=== PATIENT | male | born 1955 | race Caucasian/White ===

== ENCOUNTER 2020-03-02 10:51 | Inpatient (IN) | payer BC ==
[~2020-03-02] VITALS: Ht 182.9 cm; Wt 127.0 kg
[~2020-03-02 10:51] MED LIST: ASPIRIN EC81 M1; CENTRUM TABLET1 EACH; FISHOIL; LIPITOR80 MG PO; LOPRESSOR; LOSARTAN-HCTZ1 EACH; NORCO 5-325 TA1 EACH PO; NORVASC 2.5 MG2.5 M1 PO; PIROXICAM20 MG PO
[2020-03-02 11:06] VITALS: BP 136/84
[2020-03-02] MEDS ORDERED: NIASPAN ER 101000 M1 PO (11:17)
[2020-03-02] MEDS ORDERED: NORTRIPTYLINE H50 M3 PO (11:17)
[2020-03-02] MEDS ORDERED: NEURONTIN 300M300 M2 PO (11:17)
[2020-03-02] MEDS ORDERED: VITAMIN C100 MG PO (11:18)
[2020-03-02] MEDS ORDERED: CENTRUM ADULTS1 EACH PO (11:18)
[2020-03-02] MEDS ORDERED: HUMIRA10 MG/0.1 SUBQ (11:18)
[2020-03-02] MEDS ORDERED: TOPROL XL25 MG PO (11:19)
[2020-03-02 11:23] LABS: ABSOLUTE EOSINOPHILS 0.1 thou/uL (0.0-0.7); ABSOLUTE MONOCYTES 0.5 thou/uL (0.0-1.2); BASOPHILS 0.7 %; EOSINOPHILS 1.5 %; HEMATOCRIT 45.7 % (42.0-52.0); HEMOGLOBIN 15.8 gm/dL (14.0-18.0); LYMPHOCYTES 17.9 %; MCH 30.7 pg (26.0-34.0); MCHC 34.5 g/dL (28.0-37.0); MONOCYTES 9.2 %; MPV 9.4 fl. (7.2-11.1); NUCLEATED RBCS 0 /100WBC; PLATELET COUNT* 164 thou/uL (150-400); POLYS 70.7 %; RBC 5.13 mil/uL (4.50-6.00); RDW-CV 12.8 % (10.5-14.5); WBC 5.6 thou/uL (4.0-11.0)
[2020-03-02 11:39] LABS: CREATININE 1.4 mg/dL (0.6-1.3)
[2020-03-02 11:42] LABS: APTT 25.9 Seconds (25.0-31.3); PROTIME 10.8 Seconds (9.20-11.50)
[2020-03-02 11:50] LABS: ALBUMIN 3.2 g/dL (3.4-5.0); TOTAL BILIRUBIN 0.8 mg/dL (<0.1-1.0); TOTAL PROTEIN 7.4 g/dL (6.4-8.2)
[2020-03-02 13:40] VITALS: BP 134/70
[2020-03-02 14:00] VITALS: BP 132/68
--- NOTE | 2020-03-02 17:08 | EKG ---
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: [facility] – [place] : 1955 Requested By: Boni Walker Order Number: [id number] MD: Ag Nur Measurements Intervals [place] Rate: 86 P: 55 WI: 164 QRS: 83 QRSD: 127 T: 102 QT: 421 QTc: 504 Interpretive Statements Sinus rhythm Nonspecific intraventricular conduction delay Nonspecific T abnrm, anterolateral leads No previous ECG available for comparison Electronically Signed On 03-02-2020 17:07:51 BREAK AND LOAD OPERATOR by Ag Nur [email or web address] <ELECTRONICALLY SIGNED> By: Ag Nur MD, FACC 03/02/20 1707 1106 1106 Ag Nur MD, FAC /EPI
[2020-03-02 20:00] VITALS: BP 151/83
[2020-03-02] MEDS ORDERED: NEURONTIN300 MG PO (20:36)
[2020-03-03] VITALS (7 sets, daily range): BP systolic 117–143; BP diastolic 69–82
--- NOTE | 2020-03-03 13:41 | 2DMMODE ---
[place] [address] 2 D/M-MODE ECHOCARDIOGRAM Name: CLARITA GARCIA Room: [address] IN [facility]#: [id number] Admission: 03/02/20 Attend Phys: Morgan Pace Discharge: Date of : 57 Date of Service: 03/03/20 1340 Report #: [id number] THIS REPORT FOR: cc: Christopher Coon MD, Khanh MD Blick,Ag Velez MD [facility] ~ ADDENDUM APPROVED REPORT Study performed: 03/03/2020 10:33:22 EXAM: Comprehensive 2D, Doppler, and color-flow Echocardiogram Patient Location: In-Patient Room #: [facility] Status: routine BSA: 2.46 HR: 84 bpm BP: 143/70 mmHg Rhythm: NSR Other Information Study Quality: Good Indications CAD 2D Dimensions IVSd: 12.06 (7-11mm) LVOT Diam: 20.23 (18-24mm) LVDd: 48.16 mm PWd: 10.92 (7-11mm) Ascending Ao: 33.17 (22-36mm) LVDs: 31.72 (25-40mm) Aortic Root: 40.03 mm Volumes Left Atrial Volume (Systole) LA ESV Index: 18.90 mL/m2 Aortic Valve AoV Peak Jamaal.: 1.05 m/s AO Peak Gr.: 4.42 mmHg LVOT Max P.83 mmHg AO Mean Gr.: 2.73 mmHg LVOT Mean P.09 mmHg LVOT Max V: 1.10 m/s AO V2 VTI: 14.91 cm LVOT Mean V: 0.66 m/s CARLOS (VTI): 3.43 cm2 LVOT V1 VTI: 15.91 [place] [address] 2 D/M-MODE ECHOCARDIOGRAM Name: CLARITA GARCIA Room: [address] IN [facility].#: [id number] Admission: 03/02/20 Attend Phys: Morgan Pace Discharge: Date of : 57 Date of Service: 03/03/20 1340 Report #: [id number] Mitral Valve E/A Ratio: 0.94 MV Decel. Time: 194.76 ms MV E Max Jamaal.: 0.46 m/s MV PHT: 56.48 ms MVA (PHT): 3.90 cm2 TDI E/Lateral E': 4.60 E/Medial E': 5.75 Medial E' Jamaal.: 0.08 m/s Lateral E' Jamaal.: 0.10 m/s Pulmonary Valve PV Peak Jamaal.: 0.92 m/s PV Peak Gr.: 3.36 mmHg Left Ventricle The left ventricle is normal size. There is normal LV segmental wall motion. There is normal left ventricular wall thickness. Left ventricular systolic function is normal. The left ventricular ejection fraction is within the normal range. LVEF is 50-55%. The left ventricular diastolic function is normal. Right Ventricle The right ventricle is normal size. The right ventricular systolic function is normal. Atria The left atrium size is normal. The right atrium size is normal. Aortic Valve The aortic valve is normal in structure. No aortic regurgitation is present. There is no aortic valvular stenosis. Mitral Valve The mitral valve is normal in structure. Trace mitral regurgitation. No evidence of mitral valve stenosis. Tricuspid Valve The tricuspid valve is normal in structure. Unable to assess PA pressure. Trace tricuspid regurgitation. Pulmonic Valve The pulmonary valve is normal in structure. There is no pulmonic [place] [address] 2 D/M-MODE ECHOCARDIOGRAM Name: GARCIACLARITA Room: [address] IN [facility]#: [id number] Admission: 03/02/20 Attend Phys: Morgan Pace Discharge: Date of : 57 Date of Service: 03/03/20 1340 Report #: [id number] Great Vessels Aortic root is mildly dilated. IVC is not well visualized. Pericardium There is no pericardial effusion. <Conclusion> Left ventricular systolic function is normal. The left ventricular ejection fraction is within the normal range. <ELECTRONICALLY SIGNED> By: Ag Nur MD, FACC 03/03/20 1340 1340 134 Ag Nur MD, FACC /INF
[2020-03-03 14:49] LABS: URINE BILIRUBIN NEGATIVE (Negative); URINE BLOOD NEGATIVE (Negative); URINE CLARITY CLEAR; URINE COLOR YELLOW; URINE GLUCOSE-RANDOM NEGATIVE (Negative); URINE KETONES 1+ (Negative); URINE LEUKOCYTES NEGATIVE (Negative); URINE NITRITE NEGATIVE (Negative); URINE PROTEIN TRACE (Negative); URINE SPECIFIC GRAVITY 1.025 (1.005-1.030); URINE UROBILINOGEN 0.2 E.U./dl (0.2-1.0)
[2020-03-03 15:55] LABS: ABSOLUTE EOSINOPHILS 0.2 thou/uL (0.0-0.7); ABSOLUTE LYMPHOCYTES 1.4 thou/uL (0.8-5.3); ABSOLUTE MONOCYTES 0.7 thou/uL (0.0-1.2); ABSOLUTE NEUTROPHILS 4.2 thou/uL (1.6-8.1); BASOPHILS 0.5 %; EOSINOPHILS 2.8 %; HEMATOCRIT 41.6 % (42.0-52.0); HEMOGLOBIN 14.1 gm/dL (14.0-18.0); LYMPHOCYTES 21.2 %; MCH 30.3 pg (26.0-34.0); MCHC 33.9 g/dL (28.0-37.0); MCV 89.4 fL (80.0-100.0); MONOCYTES 10.5 %; MPV 9.2 fl. (7.2-11.1); NUCLEATED RBCS 0 /100WBC; PLATELET COUNT* 184 thou/uL (150-400); RBC 4.65 mil/uL (4.50-6.00); WBC 6.5 thou/uL (4.0-11.0)
[2020-03-03 16:04] LABS: ALBUMIN 2.8 g/dL (3.4-5.0); CALCIUM 8.2 mg/dL (8.5-10.1); CREATININE 1.4 mg/dL (0.6-1.3); MAGNESIUM 2.1 mg/dL (1.8-2.4); POTASSIUM 3.1 mmol/L (3.5-5.1); TOTAL BILIRUBIN 0.8 mg/dL (<0.1-1.0); TOTAL PROTEIN 6.9 g/dL (6.4-8.2)
[2020-03-03 16:34] LABS: INFLUENZA A ANTIGEN Negative (Negative); INFLUENZA B ANTIGEN Negative (Negative)
[2020-03-03 17:34] LABS: BE 4.9 mmol/L (-2 to +3); PCO2 40.5 mmHg (35.0-45.0); PO2 60.1 mmHg (75.0-100.0); pH 7.471 (7.340-7.450)
[2020-03-04 04:00] VITALS: BP 120/78
[2020-03-04 04:21] LABS: ABSOLUTE LYMPHOCYTES 0.9 thou/uL (0.8-5.3); ABSOLUTE MONOCYTES 0.2 thou/uL (0.0-1.2); ABSOLUTE NEUTROPHILS 4.4 thou/uL (1.6-8.1); BASOPHILS 0.2 %; EOSINOPHILS 0.1 %; HEMATOCRIT 42.5 % (42.0-52.0); HEMOGLOBIN 14.3 gm/dL (14.0-18.0); LYMPHOCYTES 16.8 %; MCHC 33.7 g/dL (28.0-37.0); MCV 89.1 fL (80.0-100.0); MONOCYTES 3.9 %; MPV 9.6 fl. (7.2-11.1); NUCLEATED RBCS 0 /100WBC; PLATELET COUNT* 204 thou/uL (150-400); RBC 4.77 mil/uL (4.50-6.00); WBC 5.6 thou/uL (4.0-11.0)
[2020-03-04 04:45] LABS: ALBUMIN 2.9 g/dL (3.4-5.0); CALCIUM 8.8 mg/dL (8.5-10.1); CREATININE 1.4 mg/dL (0.6-1.3); MAGNESIUM 2.4 mg/dL (1.8-2.4); PHOSPHORUS* 1.9 mg/dL (2.5-4.9); TOTAL BILIRUBIN 1.1 mg/dL (<0.1-1.0); TOTAL PROTEIN 7.4 g/dL (6.4-8.2)
[2020-03-04 04:58] LABS: POTASSIUM 4.2 mmol/L (3.5-5.1)
[2020-03-04 07:45] VITALS: BP 117/74
[2020-03-04 12:35] VITALS: BP 118/61
[2020-03-04 16:19] VITALS: BP 115/72
[2020-03-04 20:00] VITALS: BP 145/76
[2020-03-05 04:00] VITALS: BP 126/60
[2020-03-05 08:00] VITALS: BP 110/68
[2020-03-05 09:49] LABS: CREATININE 1.3 mg/dL (0.6-1.3)
[2020-03-05 13:40] VITALS: BP 137/74
[2020-03-05 18:01] VITALS: BP 145/79
[2020-03-05 20:00] VITALS: BP 143/75
[2020-03-06 00:20] VITALS: BP 137/76
[2020-03-06 04:44] VITALS: BP 137/78
[2020-03-06 09:00] VITALS: BP 108/55
[2020-03-06 09:46] LABS: HEMATOCRIT 40.7 % (42.0-52.0); HEMOGLOBIN 13.6 gm/dL (14.0-18.0); MCH 30.3 pg (26.0-34.0); MCHC 33.4 g/dL (28.0-37.0); MCV 90.6 fL (80.0-100.0); NUCLEATED RBCS 0 /100WBC; PLATELET COUNT* 268 thou/uL (150-400); RBC 4.49 mil/uL (4.50-6.00); RDW-CV 12.6 % (10.5-14.5); WBC 16.1 thou/uL (4.0-11.0)
[2020-03-06 10:05] LABS: ALBUMIN 3.1 g/dL (3.4-5.0); CALCIUM 8.5 mg/dL (8.5-10.1); CREATININE 1.4 mg/dL (0.6-1.3); POTASSIUM 3.8 mmol/L (3.5-5.1); TOTAL BILIRUBIN 0.6 mg/dL (<0.1-1.0); TOTAL PROTEIN 7.1 g/dL (6.4-8.2)
[2020-03-06 10:31] LABS: ABSOLUTE LYMPHOCYTES 1.1 thou/uL (0.8-5.3); ABSOLUTE MONOCYTES 0.8 thou/uL (0.0-1.2); ABSOLUTE NEUTROPHILS 14.2 thou/uL (1.6-8.1); PLATELET ESTIMATE ADEQUATE
[2020-03-06 13:55] VITALS: BP 114/63
[2020-03-06 16:00] VITALS: BP 136/63
[2020-03-07 00:34] VITALS: BP 146/55
[2020-03-07 00:36] VITALS: BP 141/74
[2020-03-07 02:06] LABS: MYCOPLASMA PNEUMONIA IgG 518 U/mL (0-99); MYCOPLASMA PNEUMONIA IgM <770 U/mL (0-769)
[2020-03-07 04:00] VITALS: BP 156/77
[2020-03-07 05:29] LABS: ABSOLUTE MONOCYTES 0.6 thou/uL (0.0-1.2); ABSOLUTE NEUTROPHILS 11.7 thou/uL (1.6-8.1); BASOPHILS 0.1 %; HEMATOCRIT 39.3 % (42.0-52.0); HEMOGLOBIN 13.2 gm/dL (14.0-18.0); LYMPHOCYTES 7.7 %; MCH 30.1 pg (26.0-34.0); MCHC 33.7 g/dL (28.0-37.0); MCV 89.4 fL (80.0-100.0); MONOCYTES 4.8 %; MPV 8.9 fl. (7.2-11.1); NUCLEATED RBCS 0 /100WBC; PLATELET COUNT* 258 thou/uL (150-400); POLYS 87.4 %; RDW-CV 12.5 % (10.5-14.5); WBC 13.4 thou/uL (4.0-11.0)
[2020-03-07 05:49] LABS: ALBUMIN 2.9 g/dL (3.4-5.0); CALCIUM 8.6 mg/dL (8.5-10.1); CREATININE 1.1 mg/dL (0.6-1.3); MAGNESIUM 2.2 mg/dL (1.8-2.4); POTASSIUM 4.5 mmol/L (3.5-5.1); TOTAL BILIRUBIN 0.7 mg/dL (<0.1-1.0); TOTAL PROTEIN 6.8 g/dL (6.4-8.2)
[2020-03-07 07:40] VITALS: BP 157/82
[2020-03-07] MEDS ORDERED: DEXAMETHASONE1 MG PO (08:50)
[2020-03-07] MEDS ORDERED: VIBRAMYCIN 100100 M2 PO (08:50)
[2020-03-07] MEDS ORDERED: PROTONIX40 M2 PO (08:50)
[2020-03-07] MEDS ORDERED: VENTOLIN HFA 1818 GM INH (08:50)
[2020-03-07 10:01] VITALS: BP 157/82
[2020-03-07 10:16] VITALS: BP 157/82
--- NOTE | 2020-03-07 14:51 | CON ---
[address] [address] CONSULTATION Name: DARIO GARCIAVIN Jamie Room: [address] IN .R.#: [id number] Admission: 03/02/20 Attend Phys: Alisa Batres Discharge: 03/07/20 Date of : 57 Report #: [id number] THIS REPORT FOR: cc: Christopher Coon MD, Khanh MD ~ Elliott Alvarez MD DATE OF SERVICE: 03/03/2020 REQUESTING PHYSICIAN: Dr. Pace. INDICATION FOR CONSULTATION: Acute hypoxemic respiratory failure. HISTORY OF PRESENT ILLNESS: A 64-year-old gentleman with past medical history as mentioned below. This does include a history of morbid obesity. The patient also has an extensive history of smoking. The patient is now admitted with worsening shortness of breath for 3 days. He has also had chest pain associated with respirations. He has been coughing, has been bringing up small amounts of sputum. Also, has had joint aches and pains for the last 8-9 days. The patient has been complaining of malaise. He was found to be hypoxemic on arrival. He is currently saturating only 90%. He is on 9 liters oxygen via nasal cannula. REVIEW OF SYSTEMS: The patient's review of systems for 10 points is negative except as mentioned above. PAST MEDICAL HISTORY: Morbid obesity, coronary artery disease, status post CABG in 2009, hypertension, high cholesterol, psoriasis and peripheral neuropathy. The patient has just had an echocardiogram performed, which shows a left ventricular ejection fraction of 50-55% without significant elevation in right heart pressures, and hypertension. FAMILY HISTORY: Heart disease, SLE. SOCIAL HISTORY: Extensive history of smoking, has now discontinued, smoked for more than 20 years, 1.5 years. No known history of heavy alcohol use or illegal drug use. CURRENT MEDICATIONS: List in [facility] reviewed. HOME MEDICATIONS: List in [facility] also reviewed. PHYSICAL EXAMINATION: GENERAL: He is alert, awake and oriented, does not appear to be in any distress; however, he is hypoxemic. VITAL SIGNS: He is saturating only 90%. He is on 9 [place] [address] CONSULTATION Name: CLARITA GARCIA Room: [address]#: [id number] Admission: 03/02/20 Attend Phys: Alisa Batres Discharge: 03/07/20 Date of : 57 Report #: [id number] cannula, blood pressure has mostly been in the normal range 143/70 this morning, then drop to 117/69. He does take blood pressure medications. Respiratory rate is 16, pulse 85. He is afebrile with a temperature of 36.7 now; however, he had a fever of 38.1 earlier today. HEENT: Head is normocephalic and atraumatic. NECK: Does not show raised JVP. CHEST: Breath sounds bilaterally equal but decreased. I do not hear any added sounds. HEART: Regular. There is no murmur. ABDOMEN: Soft and nontender. EXTREMITIES: Lower extremities show trace edema, no calf tenderness. SKIN: Dry and intact. NEUROLOGICAL: Moves all extremities bilaterally equally and spontaneously with no focal deficit identified. LABORATORY DATA: The patient's lab work from yesterday is in [facility] and this is reviewed. Creatinine is noted to be 1.4. Previous was 1.3 from 2011. Potassium was 3.0 yesterday. His blood glucose was elevated to [address] chest is consistent with viral pneumonia. ASSESSMENT AND PLAN: 1. Acute hypoxemic respiratory failure. Titrate oxygen. It appears likely to me that he has underlying obstructive sleep apnea, will therefore, recommend BiPAP while asleep as well. The patient has a history of heavy smoking in the past therefore nebulized bronchodilators are also ordered. 2. Pulmonary infiltrates/viral/atypical pneumonia. More cultures and serologies are ordered until back, I would treat him as COVID-19 and therefore remdesivir as well as dexamethasone are ordered. He is on Zithromax and ceftriaxone already which I would continue. We will also order a type and screen. If he fails to improve, then we will have a low threshold of ordering convalescent plasma as well. 3. Morbid obesity/suspected obstructive sleep apnea. See discussion above. 4. Extensive history of smoking/suspected COPD. See discussion above. 5. Renal insufficiency. Note creatinine was 1.3 in 2010, now 1.4. Follow. 6. History of hypertension. Follow blood pressure. If blood pressure remains in the lower side, I will have a low threshold of cutting back on antihypertensive medications. 7. Vessel bypass in 2009. 8. Evaluation for thromboembolic phenomena. There is mild elevation in D-dimer. The right heart pressures are not elevated. Overall, my suspicion is low; however, I will do venous Dopplers. He is high risk for IV dye and therefore, we will hold off on doing a CTA chest. 9. Deep vein thrombosis prophylaxis. We will start Lovenox. 10. Clostridium difficile [place] [address] CONSULTATION Name: JOSECLARITA Ayala Room: [address]#: [id number] Admission: 03/02/20 Attend Phys: Alisa Batres Discharge: 03/07/20 Date of : 57 Report #: [id number] Thank you for this consultation. <ELECTRONICALLY SIGNED> By: Elliott Alvarez MD 03/07/20 1451 1540 [id number] Alvarez MD /nt
== END 2020-03-07 11:15 | disposition home or self-care (01) | DRG 177 ==
LOC: M.ERS 10:51 → M.TBA-ER 12:32 → M.ORTHSURG 12:32 → M.TBA-ER 12:32 → M.ERS 13:42 → M.ORTHSURG 14:32 → M.2W 03-03 19:30 → M.ORTHSURG 03-05 11:29
PROVIDERS: Emergency Medicine Emergency Medical Services; Internal Medicine; Internal Medicine Critical Care Medicine; ADMIT Internal Medicine; ATTEND Internal Medicine
PROC: XW033E5 Introduction of Remdesivir Anti-infective into Peripheral Vein, Percutaneous Approach, New Technology Group 5 (ICD-10-PCS; principal; 2020-03-03)
PROC: 5A0935A Assistance with Respiratory Ventilation, Less than 24 Consecutive Hours, High Flow/Velocity Cannula (ICD-10-PCS; principal; 2020-03-03)
PROC: 5A09357 Assistance with Respiratory Ventilation, Less than 24 Consecutive Hours, Continuous Positive Airway Pressure (ICD-10-PCS; 2020-03-04)
PROC: 5A0935A Assistance with Respiratory Ventilation, Less than 24 Consecutive Hours, High Flow/Velocity Cannula (ICD-10-PCS; 2020-03-04)
PROC: 5A0935A Assistance with Respiratory Ventilation, Less than 24 Consecutive Hours, High Flow/Velocity Cannula (ICD-10-PCS; 2020-03-05)
PROC: 5A09357 Assistance with Respiratory Ventilation, Less than 24 Consecutive Hours, Continuous Positive Airway Pressure (ICD-10-PCS; 2020-03-06)
PROC: 5A09357 Assistance with Respiratory Ventilation, Less than 24 Consecutive Hours, Continuous Positive Airway Pressure (ICD-10-PCS; 2020-03-07)
DX: U07.1 COVID-19 (principal); J96.01 Acute respiratory failure with hypoxia; J12.89 Other viral pneumonia; D84.9 Immunodeficiency, unspecified; J45.901 Unspecified asthma with (acute) exacerbation; J44.1 Chronic obstructive pulmonary disease with (acute) exacerbation; N17.9 Acute kidney failure, unspecified; J44.0 Chronic obstructive pulmonary disease with (acute) lower respiratory infection; E78.00 Pure hypercholesterolemia, unspecified; I25.10 Atherosclerotic heart disease of native coronary artery without angina pectoris; E66.01 Morbid (severe) obesity due to excess calories; M79.10 Myalgia, unspecified site; M25.50 Pain in unspecified joint; G62.9 Polyneuropathy, unspecified; K76.0 Fatty (change of) liver, not elsewhere classified; L40.9 Psoriasis, unspecified; N18.9 Chronic kidney disease, unspecified; I12.9 Hypertensive chronic kidney disease with stage 1 through stage 4 chronic kidney disease, or unspecified chronic kidney disease; Z95.1 Presence of aortocoronary bypass graft; Z68.38 Body mass index [BMI] 38.0-38.9, adult; Z87.891 Personal history of nicotine dependence